=== PATIENT | female | born 1995 | race Caucasian/White ===

== ENCOUNTER → 2018-07-19 | Outpatient (CLI) | payer BC, MEDICAID, SELFPAY ==
[2018-07-19 15:40] LABS: Chlamydia Trachomatis by PCR Negative (Negative); Neisserai gonorrhoeae by PCR Negative (Negative); Probe Check PASS; Sample Adequacy Control PASS; Specimen Processing Control PASS
[2018-07-23 16:11] LABS: HPV Reflexed? NOT INDICATED
== END | disposition home or self-care (01) ==
PROVIDERS: Visit Provider Obstetrics & Gynecology
DX: Z11.3 Encounter for screening for infections with a predominantly sexual mode of transmission (principal); Z12.4 Encounter for screening for malignant neoplasm of cervix
CPT/HCPCS: 87491; 87591; 88175; G0145

== ENCOUNTER → 2019-07-24 18:10 | Outpatient (CLI) | payer BC, MEDICAID, SELFPAY | PROVIDERS: Visit Provider Obstetrics & Gynecology | DX: Z12.4 Encounter for screening for malignant neoplasm of cervix (principal) | CPT/HCPCS: 88175; G0145 ==

== ENCOUNTER 2021-02-17 14:28 | Outpatient (CLI) | payer BC, MEDICAID, SELFPAY ==
[2021-02-17 14:49] LABS: Absolute Lymphocyte Count 3.08 X10^3/uL (0.83-4.51); Absolute Neutrophil Count 5.4 X10^3/uL (2.0-7.7); Basophil# 0.02 X10^3/uL; Basophil% 0.2 % (0-1); Eosinophil# 0.14 X10^3/uL; Eosinophils% 1.5 % (0-5); Hematocrit 36.7 % (37-47); Hemoglobin 12.8 g/dL (12.0-15.0); Lymphocyte # 3.08 X10^3/ul (0.83-4.51); Lymphocyte % 32.9 % (19-41); Mean Corp Hgb Conc 34.9 g/dL (32-36); Mean Corpuscular Hgb 28.9 pg (27.0-32.0); Mean Corpuscular Volume 82.8 fL (81-99); Mean Platelet Vol. 8.8 fl (6.2-12.0); Monocyte# 0.67 X10^3/uL; Monocyte% 7.2 % (0-10); NRBC Flagged by Analyzer 0 % (0-5); Neutrophil # 5.43 X10^3/uL (2.7-7.7); Neutrophil % 57.9 % (47-70); Platelet Count 302 K/mm3 (150-450); RBC Distribution Width SD 36.5 fl (35.1-43.9); Red Blood Count 4.43 M/mm3 (4.2-5.4); White Blood Count 9.4 K/mm3 (4.4-11.0)
[2021-02-17 14:58] LABS: Protein:Creat Ratio 92 mg/g CRE (0-200)
[2021-02-17 15:18] LABS: ALB/GLOB Ratio 0.9 RATIO (0.9-2.4); AST(SGOT) 13 U/L (15-37); Alanine Aminotransfer ALT/SGPT 24 U/L (13-56); Albumin, Serum 3.5 g/dL (3.2-5.0); Alkaline Phosphatase 79 U/L (45-117); Anion Gap 7 (5-15); BUN 9 mg/dL (7-18); BUN/Creat Ratio 13.8 RATIO (10-20); Calcium,Total 9.1 mg/dL (8.5-10.1); Chloride 103 mmol/L (98-107); Creatinine, Serum 0.65 mg/dL (0.55-1.02); EST Glomerular Filtration Rate 119 mL/min (>60); Est Glom Filt Rate - Afr Amer 144 mL/min (>60); Globulin 3.7 g/dL (2.2-4.2); Glucose 76 mg/dL (74-106); LDH 71 U/L (84-246); Potassium 3.8 mmol/L (3.5-5.1); Protein, Total 7.2 g/dL (6.4-8.2); Sodium Level 137 mmol/L (136-145)
[2021-02-17 15:54] LABS: HIV - WCH Non-Reactive (Nonreactive); Hepatitis B Surface Antigen Non-Reactive (Nonreactive); Hepatitis C Antibody Non-Reactive (Nonreactive); Rubella IgG Reactive (Nonreactive); Syphilis Antibodies Non-reactive
[2021-02-21 15:07] LABS: Chlamydia By Nucleic Acid AMP Negative (Negative)
[2021-02-21 16:08] LABS: Gonococcus By Nucleic Acid AMP Negative (Negative)
== END 2021-02-17 23:59 | disposition short-term general hospital (02) ==
LOC: WOBLAB 14:32
PROVIDERS: Visit Provider Obstetrics & Gynecology
DX: Z34.81 Encounter for supervision of other normal pregnancy, first trimester (principal)
CPT/HCPCS: 36415; 80053; 82570; 83615; 84156; 85025; 86703; 86762; 86780; 86803; 87086; 87088; 87340; 87491; 87591

== ENCOUNTER → 2021-06-09 | Outpatient (CLI) | payer BC, MEDICAID, SELFPAY ==
--- NOTE | 2021-06-09 14:43 | US_ITS ---
INDICATION: RIGHT FLANK PAIN -- PATIENT 23 WEEKS EXAMINATION: Ultrasound US Kidney(s) complete (eg, kidneys and bladder) TECHNIQUE: Contreras scale and color doppler images were obtained of the kidneys. COMPARISON: None. FINDINGS: RIGHT KIDNEY: 11.0 x 6.0 x 5.1 cm. Mild hydronephrosis No shadowing calculus, focal lesion or perinephric collection is demonstrated. LEFT KIDNEY: 10.5 x 6.0 x 4.1 cm. There is no hydronephrosis. No shadowing calculus, focal lesion or perinephric collection is demonstrated. URINARY BLADDER: No acute abnormality. US/Kidney and Bladder IMPRESSION: Mild right hydronephrosis. No obstructing calculus demonstrated. Electronically Signed: Jama Hassan MD at 15:31 EDT ,
== END | disposition home or self-care (01) ==
LOC: US 14:39
PROVIDERS: Referring Provider Obstetrics & Gynecology; Visit Provider Obstetrics & Gynecology
DX: R10.9 Unspecified abdominal pain (principal)
CPT/HCPCS: 76770

== ENCOUNTER → 2021-06-30 | Outpatient (CLI) | payer BC, MEDICAID, SELFPAY ==
[2021-06-30 14:52] LABS: Hematocrit 30.7 % (37-47); Hemoglobin 10.3 g/dL (12.0-15.0); Mean Corp Hgb Conc 33.6 g/dL (32-36); Mean Corpuscular Hgb 28.1 pg (27.0-32.0); Mean Corpuscular Volume 83.9 fL (81-99); Mean Platelet Vol. 8.8 fl (6.2-12.0); Platelet Count 309 K/mm3 (150-450); RBC Distribution Width CV 12.2 % (11.6-14.6); RBC Distribution Width SD 36.9 fl (35.1-43.9); Red Blood Count 3.66 M/mm3 (4.2-5.4); White Blood Count 9.1 K/mm3 (4.4-11.0)
[2021-06-30 15:25] LABS: Glucose Challenge Gest 1H 50g 104 mg/dL (70-140)
== END | disposition home or self-care (01) ==
LOC: WOBLAB 14:17
PROVIDERS: Visit Provider Obstetrics & Gynecology
DX: Z34.82 Encounter for supervision of other normal pregnancy, second trimester (principal)
CPT/HCPCS: 36415; 82950; 85027

== ENCOUNTER → 2021-07-19 | Outpatient (CLI) | payer BC, MEDICAID, SELFPAY | END | disposition home or self-care (01) | LOC: WOBLAB 16:18 | PROVIDERS: Visit Provider Obstetrics & Gynecology | DX: Z34.83 Encounter for supervision of other normal pregnancy, third trimester (principal) | CPT/HCPCS: 36415; 86850 ==

== ENCOUNTER → 2021-09-20 | Outpatient (CLI) | payer BC, MEDICAID, SELFPAY | END | disposition home or self-care (01) | LOC: LABSPEC 13:59 | PROVIDERS: Visit Provider Obstetrics & Gynecology | DX: Z36.85 Encounter for antenatal screening for Streptococcus B (principal) | CPT/HCPCS: 87081 ==

== ENCOUNTER 2021-09-27 05:08 | Inpatient (IN) | payer MEDICAID, SELFPAY ==
[2021-09-27] VITALS (16 sets, daily range): BP systolic 102–141; BP diastolic 63–84; PULSE 64–89; RESP 16; TEMP 36.2–36.7; O2SAT 95–100; BMI 27.8
[2021-09-27] MEDS: Lactated Ringers 1,000 ML 999 ML IV (05:30)
[2021-09-27 05:52] LABS: Absolute Lymphocyte Count 3.22 X10^3/uL (0.83-4.51); Absolute Neutrophil Count 6.3 X10^3/uL (2.0-7.7); Basophil# 0.02 X10^3/uL; Basophil% 0.2 % (0-1); Eosinophil# 0.09 X10^3/uL; Eosinophils% 0.9 % (0-5); Hematocrit 33.4 % (37-47); Hemoglobin 10.5 g/dL (12.0-15.0); Lymphocyte # 3.22 X10^3/ul (0.83-4.51); Lymphocyte % 31.7 % (19-41); Mean Corp Hgb Conc 31.4 g/dL (32-36); Mean Corpuscular Volume 76.3 fL (81-99); Mean Platelet Vol. 9.1 fl (6.2-12.0); Monocyte# 0.46 X10^3/uL; Monocyte% 4.5 % (0-10); NRBC Flagged by Analyzer 0 % (0-5); Neutrophil # 6.32 X10^3/uL (2.7-7.7); Neutrophil % 62.1 % (47-70); Platelet Count 347 K/mm3 (150-450); RBC Distribution Width CV 14.9 % (11.6-14.6); RBC Distribution Width SD 41.1 fl (35.1-43.9); Red Blood Count 4.38 M/mm3 (4.2-5.4); White Blood Count 10.2 K/mm3 (4.4-11.0)
[2021-09-27] MEDS: Lactated Ringers 1,000 ML 150 ML IV (06:34)
[2021-09-27] MEDS: Acetaminophen 500 MG Tablet 1000 MG PO ×3 (06:57→20:25)
[2021-09-27] MEDS: Sodium Citrate/Citric Acid 30 ML UDC PO (06:57)
--- NOTE | 2021-09-27 07:16 | PCM.HP.BLA ---
History and Physical Date of Admission: 09/27/21 Chief complaint: Repeat section at term History present illness: 26-year-old at 39 weeks 0 days with LELA 10/04/2021 arrives for repeat section at term. Denies headache, vision change, chest pain, shortness of breath, nausea vomiting, right upper quadrant pain. Patient states good movement. Obstetric history: G1: 39-week primary male 8 pounds 9 ounces G2: Current Past medical history: None Medications: None Past surgical history: Tonsils and adenoids, section, wisdom teeth extraction Social history: Denies smoking, alcohol use, drug use Family history: Denies history DVT or PE Allergies: No known drug Review of systems: Besides above pertinent positives a full review of systems was performed and found to be negative Physical exam: Vital signs: Blood pressure 117/74 pulse 78 respiratory rate 16 temperature 97.3 ?F SPO2 98% on room air General: Normal. No acute distress HEENT: Normocephalic atraumatic no cervical adenopathy Cardiac/respiratory: A successor muscles, nonlabored breathing Abdomen: Soft, nontender, gravid Extremities: No peripheral edema normal peripheral pulses Psych: Normal affect and beach Labs: White blood cell count 10.2 hemoglobin 10.5 hematocrit 33.4% platelets 347. Blood type B- antibody negative Assessment and plan: 26 old at 39 weeks 0 days for repeat section at term Admit labor and delivery Routine orders 2 g Ancef Anesthesia to see
[2021-09-27] MEDS: Cefazolin 2 GM in 0.9% Normal Saline 100 ML IV (07:47)
--- NOTE | 2021-09-27 08:35 | OP.PCM_ITS ---
Details Operative Information Date of Procedure: 09/27/21 Pre-Operative Diagnosis: History of section, term Post-Operative Diagnosis: History of section, term store operations associate #1: Carson Brunner Findings Description of Procedure: Procedure: Repeat low transverse section Via Pfannenstiel incision Surgeon: Renan Ratliff MD Anesthesia: General EBL: 600 cc IV fluids: 1000 cc Urine output: Minimal Complications: None Specimen: None Findings: Male in vertex position, Apgars 8/9. Normal uterus, tubes, and ovaries. Poor pain control, anesthesia decided on general anesthesia after attempted spinal. Consent: Patient with history of section desires repeat via Pfannenstiel incision. Patient understands the risk of the procedure include but are not limited to visceral or vascular injury, prolonged hospitalization, blood loss and need for transfusion, reoperation. Patient stated understanding and wished to proceed. All questions were answered and consent was signed. Procedure: Patient arrived to the OR where spinal anesthesia was attempted but general anesthesia was found to give adequate pain control. Patient was prepared and draped in a supine position with leftward tilt. 2 g of Ancef were given for infection prophylaxis. A Pfannenstiel incision was made at the skin with a scalpel. The incision was carried down to the fascia with a scalpel. The fascia was excised and extended laterally. Rectus muscle was dissected at the midline down to the level of pubic symphysis. Preperitoneal fatty tissue was noted and peritoneum was entered bluntly. Peritoneum was extended superiorly and inferiorly with good visualization of bladder. Bladder blade was inserted and vesicouterine peritoneum was identified. Low transverse hysterotomy incision was made. Hand was placed into the incision and gentle fundal pressure was applied once the bladder blade was removed and the head was brought into the incision. Cord was cut and clamped. Baby is handed off to nursing. Placenta was delivered via cord traction and fundal massage. IV oxytocin was initiated in order to facilitate uterine contractions. Uterus was exteriorized and wiped out with dry laparotomy sponge in order to remove remaining placental membranes. Uterus was closed in a continuous running fashion. Good hemostasis was noted. Uterus was placed back into the abdominal cavity and reinspected and good hemostasis was noted. Fascia was closed in a continuous running fashion with PDS suture. Subcutaneous irrigation was performed, good hemostasis was noted. Skin was closed in a subcuticular fashion. All counts were correct x2. Patient tolerated the procedure well and was brought to recovery in a stable condition.
[2021-09-27] MEDS: Oxytocin 30 units/NS 500 ml 30 UNITS/500 ML IV.SOLN 167 UNITS IV (09:00)
[2021-09-27] MEDS: Ketorolac 30 MG/ML Syringe IV ×3 (09:24→22:53)
[2021-09-27] MEDS: Senna/Docusate Sodium 1 Tablet PO (10:39)
[2021-09-27] MEDS: Lactated Ringers 1,000 ML 100 ML IV (12:00)
--- NOTE | 2021-09-27 17:19 | NURSING ---
egg-sized, dark red, blood clot noted when patient got up to the bathroom.
[2021-09-27] MEDS: 0.9% Saline Lock 10 ML Syringe IV (22:53)
[2021-09-27] MEDS: Enoxaparin 40 MG/0.4 ML Syringe SC (22:53)
[2021-09-28 00:25] VITALS: BP 91/52; PULSE 65; RESP 16; TEMP 36.5; O2SAT 97
[2021-09-28] MEDS: Acetaminophen 500 MG Tablet 1000 MG PO ×4 (02:33→20:20)
[2021-09-28 05:40] VITALS: BP 118/75; PULSE 76; RESP 16; TEMP 36.3; O2SAT 98
[2021-09-28 05:57] LABS: Hematocrit 21.5 % (37-47); Hemoglobin 6.9 g/dL (12.0-15.0); Mean Corp Hgb Conc 32.1 g/dL (32-36); Mean Corpuscular Hgb 24.8 pg (27.0-32.0); Mean Corpuscular Volume 77.3 fL (81-99); Mean Platelet Vol. 8.8 fl (6.2-12.0); Platelet Count 286 K/mm3 (150-450); RBC Distribution Width CV 14.8 % (11.6-14.6); RBC Distribution Width SD 41.2 fl (35.1-43.9); Red Blood Count 2.78 M/mm3 (4.2-5.4)
[2021-09-28] MEDS: 0.9% Saline Lock 10 ML Syringe IV ×2 (06:14→08:40)
[2021-09-28] MEDS: Ketorolac 30 MG/ML Syringe IV (06:14)
--- NOTE | 2021-09-28 06:30 | NURSING ---
At 0215 pt called RN to room to look at a blood clot that she had passed. Pt got up to go to bathroom and reports that there was an egg-sized clot in her pad. Pt put the clot in the toilet, but did not flush the clot. When this RN looked in toilet, clot was unable to be visualized well. Pt reports that it she only passed one clot when she got up and she does not have any dizziness or other sx. Hat placed in pt's bathroom for future clots that need assessed. Pt aware of reasons to call RN. NATALIE Álvarez
--- NOTE | 2021-09-28 07:17 | DCINST_ITS ---
Discharge Instructions Diet Discharge Diet: No restrictions Activity Discharge Activity: Return to Normal Activity, May Drive (No driving while on narcotic medications), May Shower and - (No tub baths for 2 weeks) May resume sexual activity in: 4-6 weeks Lifting Restrictions: No lifting over 25 pounds for 2 to 3 weeks Dressing / Incision Call your doctor if your incision/area has: Continuous Slow Oozing and Foul Smelling Discharge Call your doctor if you observe: Fever of 101 or Higher, Shortness of breath and Chest pain Follow Up Care Please Follow Up With: Renan Ratliff MD When: 2 weeks postoperatively, 4 to 6 weeks Test Results: Test results from this visit will be discussed in further detail at your follow- up appointment, if applicable. Discharge Plan Admission Admit Date/Time: 09/27/21 05:08 Primary Reason for Your Visit: Repeat section Attending Provider: Renan Ratliff Discharge Orders/Prescriptions Prescriptions: New oxycodone 5 mg Tablet 5 mg PO Q6H 4 Days Qty: 16 0RF Continued obznxnih-sox-Xw-FA 1 mg Tablet 1 tab PO DAILY aspirin 81 mg Tablet,Chewable 81 mg PO DAILY Disposition Disposition (needs filled in before D/C Order can be placed): Home, Self Care
--- NOTE | 2021-09-28 07:19 | PCM.PN.OB ---
Subjective Subjective No overnight complaints. Denies fevers, chills, chest pain, shortness of breath, dizziness, weakness Objective Data Objective Data Vital Signs: Vital Signs Temp Pulse Resp BP Pulse Ox O2 Del Method 97.4 F L 76 16 118/75 98 Room Air 09/28/21 05:40 09/28/21 05:40 09/28/21 05:40 09/28/21 05:40 09/28/21 05:40 09/28/21 05:40 Oxygen Delivery Method Room Air Weight: 152 lb 1.903 oz Body Mass Index (BMI) 27.8 Intake & Output: Intake and Output for Last 24 Hours 09/26/21 09/27/21 09/28/21 23:59 23:59 23:59 Intake Total 2502 / 2502 Output Total 2950 / 2950 Balance -448 / -448 Lab / Micro Data Result Diagrams: 09/28/21 05:50 Labs: Laboratory Results - last 24 hr 09/27/21 15:14: Screen NEGATIVE, Baby's Blood Type A POSITIVE, Baby's WYATT NEGATIVE 09/28/21 05:50: WBC 12.0 H, RBC 2.78 L, Hgb 6.9 L, Hct 21.5 L, MCV 77.3 L, MCH 24.8 L, MCHC 32.1, RDW Std Deviation 41.2, RDW Coeff of Radha 14.8 H, Plt Count 286, MPV 8.8 Micro: Microbiology 09/27/21 05:40 Nasal Secretion SARS-CoV-2 Antigen (Rapid) - Final Physical Exam Const alert, oriented x3, no apparent distress, average body habitus, healthy appearing and well nourished HEENT normocephalic and moist oral mucous membranes Eyes PERRL Neck full ROM Resp normal respiratory effort, no retractions and no use of accessory muscles GI GI Narrative: Soft, nontender, bandage clean dry and intact Extremity normal to inspection, full ROM and no clubbing, cyanosis or edema Neuro moves all extremities, no focal motor deficits and no sensory deficits noted Psych mental status grossly normal, affect normal, speech normal and activity/motor behavior normal Assessment & Plan (1) : PLAN: Postoperative day 1 status post repeat section at term. Pain well controlled. Breast-feeding. Acute on chronic anemia, patient asymptomatic vital signs stable. Discussed Venofer for versus transfusion risk benefits alternatives, patient elects for Venofer for infusion. For Venofer infusion today as long as asymptomatic and vital signs stable will continue p.o. 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
[2021-09-28 07:47] VITALS: BP 113/76; PULSE 76; RESP 16; TEMP 36.1; O2SAT 100
[2021-09-28 14:00] VITALS: BP 118/62; PULSE 84; RESP 16; TEMP 36.6; O2SAT 100
[2021-09-28] MEDS: Ibuprofen 600 MG Tablet PO ×2 (14:01→20:19)
[2021-09-28] MEDS: Senna/Docusate Sodium 1 Tablet PO (14:02)
[2021-09-28 20:28] VITALS: BP 127/75; PULSE 88; RESP 16; TEMP 36.3; O2SAT 99
[2021-09-28] MEDS: Enoxaparin 40 MG/0.4 ML Syringe SC (22:04)
[2021-09-29] MEDS: Acetaminophen 500 MG Tablet 1000 MG PO ×3 (01:53→14:58)
[2021-09-29] MEDS: Ibuprofen 600 MG Tablet PO ×3 (01:53→14:58)
[2021-09-29 01:59] VITALS: BP 122/70; PULSE 72; RESP 15; TEMP 36.2
[2021-09-29 06:24] LABS: Absolute Neutrophil Count 6.8 X10^3/uL (2.0-7.7); Basophil# 0.04 X10^3/uL; Basophil% 0.4 % (0-1); Eosinophil# 0.14 X10^3/uL; Eosinophils% 1.3 % (0-5); Hematocrit 21.2 % (37-47); Hemoglobin 6.4 g/dL (12.0-15.0); Lymphocyte % 25.1 % (19-41); Mean Corp Hgb Conc 30.2 g/dL (32-36); Mean Corpuscular Hgb 23.6 pg (27.0-32.0); Mean Corpuscular Volume 78.2 fL (81-99); Mean Platelet Vol. 8.6 fl (6.2-12.0); Monocyte% 7.4 % (0-10); NRBC Flagged by Analyzer 0.7 % (0-5); Neutrophil # 6.83 X10^3/uL (2.7-7.7); Neutrophil % 63.7 % (47-70); Platelet Count 288 K/mm3 (150-450); RBC Distribution Width CV 15.4 % (11.6-14.6); RBC Distribution Width SD 42.7 fl (35.1-43.9); Red Blood Count 2.71 M/mm3 (4.2-5.4); White Blood Count 10.7 K/mm3 (4.4-11.0)
--- NOTE | 2021-09-29 07:15 | PCM.DC.BLA ---
Discharge Summary Date of Admission: 09/27/21 Date of Discharge: 09/29/21 Summary: Patient arrived on 09/27/2021 for scheduled repeat section. Repeat section on 09/27/2021. Patient with acute on chronic anemia given Venofer 200 mg IV on 09/28/2021. Remained asymptomatic. Given 1 unit of packed red blood cells on 09/29/2021. Patient remained stable and discharged home on 09/29/2021. Meaningful Use Info Meaningful Use Diagnoses (Choose all that apply): None applicable Discharge Plan Admission Admit Date/Time: 09/27/21 05:08 Primary Reason for Your Visit: Repeat section Attending Provider: Renan Ratliff Instructions Additional Instructions / Restrictions: Regular diet. Okay to shower. No tub baths for 2 weeks. No intercourse for 4 to 6 weeks. No lifting over 25 pounds for 2 to 3 weeks. Call if chest pain, shortness of breath, increased bleeding. Follow-up 2 weeks postoperatively Discharge Orders/Prescriptions Prescriptions: New oxycodone 5 mg Tablet 5 mg PO Q6H 4 Days Qty: 16 0RF Continued yzcimolp-tob-Bd-FA 1 mg Tablet 1 tab PO DAILY aspirin 81 mg Tablet,Chewable 81 mg PO DAILY Disposition Disposition (needs filled in before D/C Order can be placed): Home, Self Care
[2021-09-29 08:00] VITALS: BP 116/70; PULSE 74; RESP 18; TEMP 36.4; O2SAT 98
[2021-09-29 09:52] VITALS: BP 121/59; PULSE 91; RESP 16; TEMP 36.9; O2SAT 98
[2021-09-29 09:58] VITALS: BP 115/63; PULSE 96; RESP 18; TEMP 36.9; O2SAT 98
[2021-09-29] MEDS: 0.9% Saline Lock 10 ML Syringe IV ×2 (09:58→12:00)
[2021-09-29] MEDS: Senna/Docusate Sodium 1 Tablet PO (10:01)
[2021-09-29 10:13] VITALS: BP 117/59; PULSE 88; RESP 18; TEMP 36.5; O2SAT 98
[2021-09-29 14:58] VITALS: BP 109/67; PULSE 71; RESP 18; TEMP 36.1; O2SAT 98
== END 2021-09-29 17:00 | disposition home or self-care (01) | DRG 788 ==
PROVIDERS: Admitting Provider Obstetrics & Gynecology; Referring Provider Obstetrics & Gynecology; Visit Provider Obstetrics & Gynecology
PROC: 10D00Z1 Extraction of Products of Conception, Low, Open Approach (ICD-10-PCS; CPT 59514; principal; 2021-09-27 07:15)
DX: O34.211 Maternal care for low transverse scar from previous cesarean delivery (principal); O90.81 Anemia of the puerperium; Z37.0 Single live birth; Z3A.39 39 weeks gestation of pregnancy
CPT/HCPCS: 59025; 59050; 85025; 85027; 85461; 86850; 86900; 86901; 86920; 87426; 90384; 99218; 99251; J1756; J7040; J7120; P9016; A4216; G0378; G0463; J2405; J2790

== ENCOUNTER → 2021-12-01 | Outpatient (CLI) | payer BC, MEDICAID, SELFPAY ==
[2021-12-06 04:07] LABS: Chlamydia By Nucleic Acid AMP Negative (Negative)
[2021-12-06 18:03] LABS: Gonococcus By Nucleic Acid AMP Negative (Negative)
== END | disposition home or self-care (01) ==
LOC: LABSPEC 16:34
PROVIDERS: Visit Provider Obstetrics & Gynecology
DX: Z11.3 Encounter for screening for infections with a predominantly sexual mode of transmission (principal)
CPT/HCPCS: 87491; 87591

== ENCOUNTER 2022-06-17 11:51 | Emergency (ER) | payer BC, MEDICAID, SELFPAY ==
[2022-06-17 11:52] VITALS: BP 150/116; PULSE 78; RESP 14; TEMP 36.4; O2SAT 97; BMI 26.4
--- NOTE | 2022-06-17 12:09 | EX.ED.DYSGE1 ---
HPI <MARLENE Clement - Last Filed: 06/17/22 14:41> History of Present Illness Chief Complaint: Head Injury Narrative Narrative: Patient presenting today with concerns that she has a concussion. She states that at the end of last week she began having right-sided headaches, at the beginning of this week she felt that her right pupil was larger than her left, and she began to feel lightheaded. Yesterday she noticed a small bump on the right side of her head and thought maybe that she hit her head somehow and had a concussion. She denies any knowledge of hitting her head. She denies a PMH of any chronic health conditions. She denies any fever, chills, visual changes, dizziness, chest pain, shortness of breath, abdominal pain, nausea, and vomiting. PFSH <MARLENE Clement - Last Filed: 06/17/22 14:41> PFSH Medical History Headache History of blood transfusion Kidney disease Polyhydramnios Pre-eclampsia Home Medications aspirin 81 mg chewable tablet 81 mg PO DAILY see provider 09/27/21 [History Last Taken 09/26/21 08:00] wzvreftt-ihm-Lp-FA 1 mg tablet 1 tab PO DAILY 09/27/21 [History Last Taken 09/26/21 08:00] Allergy/AdvReac Type Severity Reaction Status Date / Time adhesive AdvReac Rash Verified 09/27/21 05:21 gold Au 198 AdvReac Rash Verified 06/17/22 11:54 Surgical History History of surgery Previous section Social History Smoking Status: Never smoker ROS <MARLENE Clement - Last Filed: 06/17/22 14:41> ROS ED Constitutional Constitutional ED: Denies chills, fever(s) or sweats Eyes Eyes: Denies blurry vision, change in vision or diplopia Cardiovascular Cardiovascular: Denies chest pain or palpitations Respiratory/Chest Respiratory/Chest: Denies cough or dyspnea Gastrointestinal Gastrointestinal: Denies abdominal pain, nausea or vomiting Musculoskeletal Musculoskeletal: Denies arthralgias or myalgias Integumentary Denies abscess, Abrasions or rash Neurologic Neurologic: Reports headache(s); Denies confusion, dizziness or weakness Psychiatric Psychiatric: Denies anxiety or depression EXAM <MARLENE Clement - Last Filed: 06/17/22 14:41> Physical Exam Const Vital Signs: 06/17/22 11:52 06/17/22 12:29 Temperature 97.5 F L Temperature Source Temporal Pulse Rate 78 Respiratory Rate 14 Respiratory Effort Normal Respiratory Depth Normal Respiratory Pattern Normal Blood Pressure 150/116 H Blood Pressure Mean 127 Pulse Ox 97 Oxygen Delivery Method Room Air Positive well nourished, well developed and no apparent distress General Appearance ED: well developed HEENT Reports normocephalic and head/scalp atraumatic HEENT Narrative: Small erythemic natalia to the right side of patient's head without any edema. Mouth ED: Yes moist mucous membranes normal Eyes PERRL and EOMs intact bilaterally General Eye ED: Yes normal light reflex Pupil: accommodation reflex normal Neck full ROM and supple Chest Wall inspection of chest normal Resp normal respiratory effort and clear to auscultation bilaterally Cardio regular rate and regular rhythm GI soft to palpation, non-tender, non-distended and no masses Back/Spine normal ROM and normal to inspection Extremity normal to inspection and full ROM Neuro oriented x3, CN's II-XII intact bilaterally, moves all extremities, no focal motor deficits and no sensory deficits noted Sensorium / Orientation: awake and alert Psych mental status grossly normal and thought process normal Skin no rashes or lesions noted and no wounds <Dr. Justo Doll DO - Last Filed: 06/17/22 19:41> Physical Exam Const Vital Signs: 06/17/22 11:52 06/17/22 12:29 Temperature 97.5 F L Temperature Source Temporal Pulse Rate 78 Respiratory Rate 14 Respiratory Effort Normal Respiratory Depth Normal Respiratory Pattern Normal Blood Pressure 150/116 H Blood Pressure Mean 127 Pulse Ox 97 Oxygen Delivery Method Room Air MDM <MARLENE Clement - Last Filed: 06/17/22 14:41> [facility] MDM Narrative Medical decision making narrative: Patient presenting today due to concerns that she could have a concussion. She states that last week she began having headaches on the right side of her head, she began noticing early this week that her right pupil seemed larger than her left, and she feels lightheaded at times. She denies any trauma to her head. She does have a very small red abrasion to the right side of her head without any obvious edema or hematoma. Pupils are equal, round, and reactive to light. CT will be obtained to rule out mass and other intracranial abnormality and is negative for any acute findings. She reports that she drinks very little water, I explained that this could be causing her to feel lightheaded at times and have encouraged her to stay well-hydrated. On reexamination she states that she is feeling well, I have encouraged her to follow-up with her PCP. She does not currently have one, I have given her a referral for one. She will be discharged home in stable condition and is comfortable with plan. Radiography Diagnostic Testing: Clinical Impression(s) from Imaging Studies Brain CT 06/17/22 12:13 IMPRESSION: No acute intracranial process identified. Paranasal sinus inflammatory disease. Electronically Signed: Shagufta Phelps MD at 13:02 EDT Reading Location ID and State: [facility] / [place] Tel , Service support , <Dr. Justo Doll, DO - Last Filed: 06/17/22 19:41> [facility] Narrative Medical decision making narrative: Patient presenting today due to concerns that she could have a concussion. She states that last week she began having headaches on the right side of her head, she began noticing early this week that her right pupil seemed larger than her left, and she feels lightheaded at times. She denies any trauma to her head. She does have a very small red abrasion to the right side of her head without any obvious edema or hematoma. Pupils are equal, round, and reactive to light. CT will be obtained to rule out mass and other intracranial abnormality and is negative for any acute findings. She reports that she drinks very little water, I explained that this could be causing her to feel lightheaded at times and have encouraged her to stay well-hydrated. On reexamination she states that she is feeling well, I have encouraged her to follow-up with her PCP. She does not currently have one, I have given her a referral for one. She will be discharged home in stable condition and is comfortable with plan. Attending note: Patient seen and evaluated with television producer. I perform my own [id number] evaluation. I agree with the plan of work-up. Present nontraumatic right-sided headache states a week ago noted different sized pupils at home. Denies nausea or vomiting. Exam no focal deficits equal pupils reactive. No meningismus. Due to reporting history unequal pupils at home with headaches, CT scan ordered to rule out any masses. This was obtained and negative. She is reassured. Outpatient follow-up. Radiography Diagnostic Testing: Clinical Impression(s) from Imaging Studies Brain CT 06/17/22 12:13 IMPRESSION: No acute intracranial process identified. Paranasal sinus inflammatory disease. Electronically Signed: Shagufta Phelps MD at 13:02 EDT , Discharge Plan Triage Chief Complaint: Head Injury ED Midlevel Provider: Gisela Canales ED Provider: Justo Doll Dx/Rx/DC Orders Clinical Impression: Light-headedness Instructions: ED Dizziness, Uncertain Cause Prescriptions: No Action abenkscx-tte-Zn-FA 1 mg Tablet 1 tab PO DAILY aspirin 81 mg Tablet,Chewable 81 mg PO DAILY Primary Care Provider: Care Physician,No Primary Referrals: Vishnu Dennison MD [Med Staff - Active Staff] - 5-7 Days NOT,DEFINED [Non-Staff] - Activity Restrictions/Additional Instructions: Please follow-up with the PCP I referred you to and return for any worsening of your symptoms. Disposition Disposition: Home, Self Care Discharge Date/Time: 06/17/22 13:31
--- NOTE | 2022-06-17 12:13 | CT_ITS ---
HISTORY: unequal pupils, headaches. TECHNIQUE: Multiple axial images were obtained of the head without intravenous contrast. A radiation dose optimization technique was used for this scan. 230 images. COMPARISON: None. FINDINGS: BRAIN PARENCHYMA: No significant attenuation abnormality. No acute intra-axial hemorrhage. CSF SPACES: Cerebral ventricles, cortical sulci, and other extra-axial CSF spaces within normal limits in size for age. No midline shift or other significant mass effect. No acute extra-axial hemorrhage. OTHER: Intact calvarium. Mucosal thickening particularly in the sphenoid and maxillary sinuses. Unremarkable orbits. CT/Brain/Head without Contrast IMPRESSION: No acute intracranial process identified. Paranasal sinus inflammatory disease. Electronically Signed: Shagufta Phelps MD at 13:02 EDT ,
== END 2022-06-17 13:31 | disposition home or self-care (01) ==
PROVIDERS: Emergency Provider Emergency Medicine; Visit Provider Emergency Medicine
DX: R42 Dizziness and giddiness (principal); S00.91XA Abrasion of unspecified part of head, initial encounter; X58.XXXA Exposure to other specified factors, initial encounter; Z79.82 Long term (current) use of aspirin
CPT/HCPCS: 70450; 99282; A4216

== ENCOUNTER → 2022-06-21 | Outpatient (CLI) | payer BC, MEDICAID, SELFPAY ==
[2022-07-05 20:34] LABS: HPV Reflexed? NOT INDICATED
== END | disposition home or self-care (01) ==
LOC: LABSPEC 16:03
PROVIDERS: Visit Provider Obstetrics & Gynecology
DX: Z12.4 Encounter for screening for malignant neoplasm of cervix (principal)
CPT/HCPCS: 88175; G0145

== ENCOUNTER 2024-08-05 22:01 | Emergency (ER) | payer BC, SELFPAY ==
[2024-08-05 22:02] VITALS: BP 104/64; PULSE 54; RESP 14; TEMP 36.6; O2SAT 100; BMI 26.4
[2024-08-05 23:43] LABS: Mucous, Urine 0 SEEN /hpf (<or=2+)
[2024-08-05] MEDS: 0.9% Normal Saline (1000mL) 1,000 ML 999 ML IV (23:46)
[2024-08-05 23:50] LABS: Color, Urine Yellow (Yellow); Glucose, Dipstick Normal (Normal); Ketone-Dipstick 5 mg/dl (Negative); Leukocyte Esterase-Dipstick 25 /ul (Negative); Nitrite-Dipstick Negative (Negative); Occult Blood-Urine 250 /ul (Negative); Protein-Dipstick 30 mg/dl (Negative); Specific Gravity, Urine 1.020 (1.002-1.030); Urine Bilirubin Dipstick Negative (Negative)
--- NOTE | 2024-08-05 23:55 | CT_ITS ---
PROCEDURE: ABDOMEN/PELVIS WITH CONTRAST 08/06/2024 REASON FOR EXAM: POST OP ABD PAIN TECHNIQUE: ABDOMEN/PELVIS WITH CONTRAST Coronal and Sagittal reconstruction series were provided. CONTRAST: Isovue 370 VOLUME: 75 mL One or more dose reduction techniques were used (e.g., Automated exposure control, adjustment of the mA and/or kV according to patient size, use of iterative reconstruction technique. RADIATION DOSE SUMMARY: CTDlvol: 27 mGy DLP: 560 mGycm COMPARISON: No FINDINGS: Dependent atelectasis. Normal heart size. Small fluid in the gallbladder fossa, this is usually a normal postoperative finding. No specific evidence for postoperative abscess. Unremarkable liver, pancreas, spleen, adrenal glands, kidneys. Small simple left renal cyst. No hydronephrosis or ureteral stone. Normal bladder. Normal uterus and ovaries. No retroperitoneal or pelvic adenopathy. There is small ascites, mainly in the lower right pericolic gutter and cul-de-sac of the pelvis, Hounsfield units of 25, possibly indicating a hemorrhagic component. No free air. Nondistended bowel. No acute large bowel findings. Lumbar spine scoliosis. No acute abdominal wall findings. CT/Abdomen/Pelvis WITH Contrast IMPRESSION: Status post recent cholecystectomy. Peritoneal cavity fluid may indicate posto perative bleeding. No specific evidence for infection. Progress imaging as clinically determined. Reading Location: [place] [id number]
[2024-08-06] LABS: Red Blood Cells-Urine 0-5 SEEN /hpf (0-5); Squamous Epithelial Cells - UA 0-5 SEEN /hpf (5-10)
[2024-08-06 00:02] VITALS: BP 141/91; TEMP 36.3; O2SAT 100
[2024-08-06 00:05] LABS: Internal QC Validated? YES +Cl - CLEAR BKGD; Pregnancy, Urine Negative Negative; Record Kit Lot#,Urine Preg 0000947241
[2024-08-06 00:08] LABS: Hematocrit 35.8 % (37-47); Hemoglobin 12.4 g/dL (12.0-15.0); Immature Granulocytes Count 0.160 X10^3/uL (0.0-0.0); Mean Corp Hgb Conc 34.6 g/dL (32-36); Mean Corpuscular Volume 83.6 fL (81-99); Mean Platelet Vol. 9.1 fl (6.2-12.0); NRBC Flagged by Analyzer 0 % (0-5); Platelet Count 263 K/mm3 (150-450); RBC Distribution Width CV 12.0 % (11.6-14.6); RBC Distribution Width SD 36.2 fl (35.1-43.9); Red Blood Count 4.28 M/mm3 (4.2-5.4); White Blood Count 11.0 K/mm3 (4.4-11.0)
[2024-08-06 00:22] LABS: Lipase 20 U/L (13-75); Procalcitonin 0.12 ng/mL (<=0.10)
[2024-08-06 00:26] VITALS: BP 136/85; PULSE 67; RESP 16; TEMP 36.3; O2SAT 100
[2024-08-06 00:33] LABS: AST(SGOT) 22 U/L (<=31); Alanine Aminotransfer ALT/SGPT 20 U/L (<=34); Albumin, Serum 4.1 g/dL (3.5-5.0); Alkaline Phosphatase 71 U/L (35-104); Anion Gap 12 (5-15); BUN 19 mg/dL (4-19); BUN/Creat Ratio 27.3 RATIO (10-20); Bilirubin, Direct 0.09 mg/dL (0.00-0.30); Calcium,Total 9.3 mg/dL (7.6-11.0); Carbon Dioxide 22.6 mmol/L (21.0-32.0); Chloride 103 mmol/L (98-108); Estimated Creatinine Clearance 106.10 ml/min (50-250); Globulin 2.7 g/dL (2.2-4.2); Glucose 119 mg/dL (70-99); Potassium 4.1 mmol/L (3.3-5.1)
[2024-08-06] MEDS: Lorazepam 2 MG/ML WCH Syringe 1 MG IV (00:47)
[2024-08-06 02:00] VITALS: BP 115/71; O2SAT 98
--- NOTE | 2024-08-06 02:15 | EDS_ITS ---
HPI History of Present Illness Chief Complaint: Abd Pain Informant: patient and spouse/S.O. Narrative Narrative: Patient is a 29-year-old female who had her gallbladder removed 1 week ago at [facility]. She states that she was doing well but that earlier today her 50 pound dog ran across her abdomen and since that time she has had upper abdominal pain. She states she was informed that she could have postoperative internal bleeding if there was some type of trauma to her abdomen. She states that she is not on blood thinners nor does she have a history of bleeding disorder but with trauma she was concern for internal injury. The patient does state that the injury happened earlier this morning and she went to [facility] where she states she was evaluated with blood work and a CT scan and told that she has a potential kidney infection was placed on antibiotics and discharged home. She states she believes she was blown off and has concern that there was missed injury and therefore she presents for reevaluation as she states she still having intermittent pain. [facility] Medical History Headache History of blood transfusion Kidney disease Polyhydramnios Pre-eclampsia Home Medications ?Medication ?Instructions ?Recorded ?Last Taken ?Type fluoxetine 10 mg capsule 10 mg PO DAILY 08/05/24 Unkn own History diazepam 5 mg tablet (Valium) 5 mg PO TID PRN muscle s pasm 5 08/06/24 Unknown Rx days #15 tabs Allergy/AdvReac Type Severity Reaction Status Date / Time adhesive AdvReac Rash Verified 08/05/24 22:02 gold Au 198 AdvReac Rash Verified 08/05/24 22:02 Family History no significant family his Surgical History History of surgery Previous section Social History Smoking Status: Never smoker ROS ROS ED Constitutional Constitutional ED: Denies chills or fever(s) Eyes Eyes: Denies change in vision ENT ENT ED: Denies sore throat Cardiovascular Cardiovascular: Denies chest pain Respiratory/Chest Respiratory/Chest: Denies cough or dyspnea Gastrointestinal Gastrointestinal: Reports abdominal pain and nausea; Denies diarrhea or vomiting Genitourinary Genitourinary ED: Denies dysuria or hematuria Musculoskeletal Musculoskeletal: Denies back pain Integumentary Denies rash Neurologic Neurologic: Denies headache(s) Hematologic/Lymphatic Hematologic/Lymphatic: Denies easy bleeding or easy bruising EXAM Physical Exam Const Vital Signs: 08/05/24 22:02 08/06/24 00:02 08/06/24 00:26 Temperature 98 F 97.4 F L 97.4 F L Temperature Source Temporal Oral Oral Pulse Rate 54 L 67 Respiratory Rate 14 16 Blood Pressure 104/64 141/91 H 136/85 H Blood Pressure Mean 77 107 102 Pulse Ox 100 100 100 Oxygen Delivery Method Room Air Room Air Room Air 08/06/24 02:00 Temperature Temperature Source Pulse Rate Respiratory Rate Blood Pressure 115/71 Blood Pressure Mean 85 Pulse Ox 98 Oxygen Delivery Method Positive well nourished and well developed General Appearance ED: well developed HEENT HEENT Narrative: Normocephalic atraumatic No tongue or lip swelling no oral lesions no airway edema or compromise No secondary findings in the posterior pharynx to suggest infection Eyes PERRL and EOMs intact bilaterally General Eye ED: Negative for pale conjunctiva or scleral icterus Neck supple Neck Narrative: No nuchal rigidity or meningeal signs Resp normal respiratory effort and clear to auscultation bilaterally Cardio regular rate and regular rhythm Rate: other Other Details: Heart is regular rate and rhythm without murmurs rubs or gallops Radial and carotid pulses are equal and symmetric GI non-distended and no masses GI Narrative: Abdomen is soft and nondistended with hypoactive bowel sounds. There is pain with palpation in the midepigastric and right upper quadrant region. No voluntary guarding or rigidity. No pulsatile mass or fluid wave. Wounds are clean dry and intact without secondary findings to suggest infection No ecchymosis noted Auscultation: hypoactive bowel sounds Palpation: soft Back/Spine no CVA tenderness Extremity normal to inspection Extremity Narrative: No asymmetric edema no pitting edema negative Homans' sign bilaterally Neuro oriented x3, CN's II-XII intact bilaterally and no sensory deficits noted Sensorium / Orientation: alert Motor Exam: strength 5/5 throughout Psych Mood & Affect: anxious Skin Skin Narrative: Surgical wounds that are clean dry and intact as documented above without signs of ecchymosis MDM MDM MDM Narrative Medical decision making narrative: Patient arrived to the ER with stable vitals. She reported he had been evaluated earlier today for the similar complaint. However as patient reports mild trauma to the abdomen and is recently postsurgical there is concern for postoperative bleeding versus hematoma versus seroma versus intestinal hematoma versus postoperative infection. Secondary to his basic labs and a CT scan were obtained. Labs revealed no clinically significant findings. CT scan did show fluid within the gallbladder fossa which is most likely postsurgical. The radiologist did state that there was a small chance this could be blood but the patient is normotensive afebrile and has a stable H&H with normal bleeding times and platelet count. I did discuss the case with her general surgeon and he agrees that with that CT report stable vitals and laboratory values that there is no need for further intervention or admission and she can follow-up as an outpatient. On reevaluation she does report improvement of symptoms with the medication provided and therefore should be written a prescription for this and is otherwise safe for discharge. History & Record Review Discussion w/independent historian: Patient and Significant other Lab Data Attestation: I reviewed the patient's lab results. Labs: Laboratory Results - last 24 hr 08/05/24 08/05/24 22:30 23:36 WBC 11.0 RBC 4.28 Hgb 12.4 Hct 35.8 L MCV 83.6 MCH 29.0 MCHC 34.6 RDW Std Deviation 36.2 RDW Coeff of Radha 12.0 Plt Count 263 MPV 9.1 Immature Gran % (Auto) 1.500 H Neut % (Auto) 84.8 H Lymph % (Auto) 7.3 L [place] % (Auto) 6.3 Eos % (Auto) 0.0 Baso % (Auto) 0.1 Absolute Neuts (auto) 9.3 H Absolute Lymphs (auto) 0.80 L Nucleated RBC % 0 Sodium 137 Potassium 4.1 Chloride 103 Carbon Dioxide 22.6 Anion Gap 12 BUN 19 Creatinine 0.68 L Estim Creat Clear Calc 106.10 Est GFR (MDRD) Non-Af 122 BUN/Creatinine Ratio 27.3 H Glucose 119 H Lactic Acid 1.2 Calcium 9.3 Total Bilirubin 0.29 Direct Bilirubin 0.09 AST 22 ALT 20 Alkaline Phosphatase 71 Total Protein 6.8 Albumin 4.1 Globulin 2.7 Lipase 20 Procalcitonin 0.12 H Urine Color Yellow Urine Clarity Sl. Cloudy Urine pH 6.0 Ur Specific [place] 1.020 Urine Protein 30 H Urine Glucose (UA) Normal Urine Ketones 5 H Urine Occult Blood 250 H Urine Nitrite Negative Urine Bilirubin Negative Urine Urobilinogen Normal Ur Leukocyte Esterase 25 H Urine RBC 0-5 SEEN Urine WBC 0-5 SEEN Ur Squamous Epith Cells 0-5 SEEN Urine Bacteria 2+ Urine Mucus 0 SEEN Urine Test Negative Radiography Diagnostic Testing: Clinical Impression(s) from Imaging Studies Abdomen/Pelvis CT 08/05/24 23:55 IMPRESSION: Status post recent cholecystectomy. Peritoneal cavity fluid may indicate postoperative bleeding. No specific evidence for infection. Progress imaging as clinically determined. Reading Location: [place] [id number] Discharge Plan Triage Chief Complaint: Abd Pain ED Provider: Rashard Knox Dx/Rx/DC Orders Clinical Impression: Acute postoperative pain Instructions: Pain Management After Surgery, ED Muscle Spasm Prescriptions: New diazepam [Valium] 5 mg tablet 5 mg PO TID PRN (Reason: muscle spasm) 5 Days Qty: 15 0RF No Action fluoxetine 10 mg capsule 10 mg PO DAILY Primary Care Provider: JOSIAH GONZALES Referrals: Calin Wagner MD [Non-Staff] - JOSIAH GONZALES CRNP [Primary Care Provider] - Activity Restrictions/Additional Instructions: Please continue the medications given to you at your previous visit. Add the Valium for improvement of muscle spasm. Follow-up with your surgeon as previously directed and return to the ER should you have any further concerns Print Language: Yoruba Disposition Disposition: Home, Self Care Discharge Date/Time: 08/06/24 02:43
[2024-08-06 02:32] VITALS: BP 118/74; PULSE 76; RESP 16; TEMP 36.4; O2SAT 100
== END 2024-08-06 02:43 | disposition home or self-care (01) ==
PROVIDERS: Emergency Provider Emergency Medicine; PCP Nurse Practitioner Adult Health; Visit Provider Emergency Medicine
DX: G89.18 Other acute postprocedural pain (principal); R10.9 Unspecified abdominal pain
CPT/HCPCS: 74177; 80048; 80076; 81001; 81025; 83605; 83690; 84145; 85025; 96361; 96374; 96375; 99283; Q9967; A4216; J2405